=== PATIENT | male | born 1990 | race Caucasian/White ===

== ENCOUNTER 2025-11-07 17:15 | Emergency (ER) | payer MEDICAID ==
[~2025-11-07] VITALS: Ht 172.7 cm; Wt 75.0 kg
[2025-11-07 17:21] VITALS: O2SAT 100
[2025-11-07 19:52] VITALS: BP 119/63; PULSE 100; RESP 16; TEMP 36.7; O2SAT 100
== END 2025-11-07 21:51 | disposition home or self-care (01) ==
LOC: ER 17:15
DX: F10.129 Alcohol abuse with intoxication, unspecified (principal); Y90.9 Presence of alcohol in blood, level not specified
CPT/HCPCS: 99284